=== PATIENT | female | born 1985 | race Caucasian/White ===

== ENCOUNTER 2019-06-27 06:37 | Emergency (ER) | payer SELFPAY ==
[~2019-06-27] VITALS: Ht 157.5 cm; Wt 86.6 kg
[2019-06-27 06:42] VITALS: Ht 157.5 cm; Wt 86.6 kg
[2019-06-27 08:42] VITALS: BP 116/55
== END 2019-06-27 08:42 | disposition home or self-care (01) ==
LOC: ED 06:37
DX: S50.01XA Contusion of right elbow, initial encounter (principal); W01.0XXA Fall on same level from slipping, tripping and stumbling without subsequent striking against object, initial encounter; Y93.89 Activity, other specified; Y92.89 Other specified places as the place of occurrence of the external cause; Y99.8 Other external cause status
CPT/HCPCS: Q0092